=== PATIENT | female | born 1940 | race Asian ===

== ENCOUNTER 2022-06-16 13:09 | Outpatient (RCR) | payer MEDICARE, OTHER, SELFPAY | END 2022-09-29 14:40 | disposition home or self-care (01) | LOC: HO.WCC 13:09 | PROVIDERS: PCP Internal Medicine; Visit Provider Physician Assistant | DX: I87.032 Postthrombotic syndrome with ulcer and inflammation of left lower extremity (principal); L97.222 Non-pressure chronic ulcer of left calf with fat layer exposed; Z79.01 Long term (current) use of anticoagulants; Z79.82 Long term (current) use of aspirin; Z79.899 Other long term (current) drug therapy | CPT/HCPCS: 11042; 99212 ==